=== PATIENT | female | born 1945 | race Caucasian/White ===

== ENCOUNTER → 2017-06-06 | Day surgery (SDC) | payer MEDICARE ==
[~2017-06-06] MED LIST: ACYC800T PO; ALPR0.5T3 PO; BUPIVACAINE HCL PF 0.5% 30 ML VIAL ONE; BUPR150T5 PO; CYCL10TA PO; ESCI10TA PO; FENO50TA PO; FISH100020 PO; LEVO75TA3 PO; METO25TA3 PO; MIRA50TA PO; NAPR1TAB98 PO; PROPOFOL 200 MG/20 ML AMP IV ONE; REST0.05 EACH EYE; TRIA37.5 PO; TRIAMCINOLONE ACETONIDE 40 MG/ML VIAL I-ARTICULR ONE; VITA200C3 PO; methylPREDNISolone ACETATE 40 MG/ML VIAL I-ARTICULR ONE
--- NOTE | 2017-06-06 11:13 | M6 ---
cc: Astrid CARMONA DATE 06/06/2017 DATE OF 1945 PROCEDURE Fluoroscopically guided injection bilateral sacroiliac joints PROCEDURE NOTE History and physical was completed and signed. Consent was signed. Procedure site was marked. Medications were listed and reconciled. Pain score was recorded. Allergies were noted. Time out was taken. Fluoroscopy time was recorded where applicable. Sedation was administered or directed by Dr. Carmona. The patient was given oxygen. The patient was monitored by a registered nurse. Total procedure time was greater than 15 minutes. IV was started, blood pressure cuff, pulse oximeter and EKG were applied. The patient was placed in the prone position on a Deandre table, sedated with small amounts of propofol titrated to effect. Vital signs were monitored and remained stable throughout the procedure. The sacral area was prepped with alcohol and 10% Betadine solution and draped with sterile drapes. Fluoroscopy was used shooting from medial to lateral to clearly visualize the posterior joint line of the bilateral sacroiliac joint. Separate sterile 5-inch 22-gauge spinal needles were advanced into these joints under fluoroscopic guidance. There was negative aspiration for blood or any other type of fluid. At each location, the patient was given 1 mL of 0.5% Marcaine, 20 mg of Depo-Medrol and 20 mg of Kenalog. Following the procedure, the patient was taken to the recovery room with stable vital signs neurologically intact. MD CARLI Castillo/ALONSO /10:34 AM /10:56 AM
== END | disposition home or self-care (01) ==
LOC: PHSDC 08:44
PROVIDERS: ATTEND Pain Medicine Interventional Pain Medicine
DX: M54.5 Low back pain (principal)
CPT/HCPCS: 99152; G0260; J1030; J3301; 27096

== ENCOUNTER 2017-08-22 22:34 | Emergency (ER) | payer MEDICARE ==
[~2017-08-22] VITALS: Ht 172.7 cm; Wt 87.8 kg
[~2017-08-22 22:34] MED LIST changes: -BUPIVACAINE HCL PF 0.5% 30 ML VIAL ONE; -CYCL10TA PO; -ESCI10TA PO; -FISH100020 PO; -MIRA50TA PO; -PROPOFOL 200 MG/20 ML AMP IV ONE; -REST0.05 EACH EYE; -TRIA37.5 PO; -TRIAMCINOLONE ACETONIDE 40 MG/ML VIAL I-ARTICULR ONE; -VITA200C3 PO; -methylPREDNISolone ACETATE 40 MG/ML VIAL I-ARTICULR ONE
[2017-08-22 23:04] VITALS: BP 160/80; PULSE 88; RESP 18; TEMP 97.7; O2SAT 96
== END 2017-08-23 00:41 | disposition left against medical advice (07) ==
LOC: PHED 22:34
DX: Z53.21 Procedure and treatment not carried out due to patient leaving prior to being seen by health care provider (principal)
CPT/HCPCS: 99281